=== PATIENT | female | born 1945 | race Caucasian/White ===

== ENCOUNTER 2016-12-05 18:12 | Emergency (ER) | payer OTHER ==
[2016-12-05] MEDS ORDERED: PHENERGAN WITH CODEINE LIQUID PO ONE (18:52)
--- NOTE | 2016-12-05 18:54 | PROVIDER DOCUMENTATION ---
HPI-Respiratory General - General Chief Complaint: Cold Symptoms Stated Complaint: SINUS INFECTION Time Seen by Provider: 12/05/16 18:41 Source: patient Allergies/Adverse Reactions: Patient Allergies Allergy/AdvReac Type Severity Reaction Status Date / Time acetaminophen [From [place]] Allergy Unknown Verified 12/05/16 18:35 hydrocodone bitartrate * Allergy Unknown Verified 12/05/16 18:35 [From [place]] Penicillins Allergy SWELLING Verified 12/05/16 18:35 Sulfa (Sulfonamide Allergy Unknown Verified 12/05/16 18:35 Antibiotics) Home Medications: Home Medication List Medication Instructions Recorded Confirmed Last Taken Type Albuterol Sulfate [Proair Hfa] 8.5 gm IH Q4-6H PRN PRN 10/20/15 12/05/16 History Amlodipine Besylate/Benazepril 1 each PO QHS 10/20/15 12/05/16 12/05/16 History [Amlodipine-Benazepril 5-10 mg] Azelastine 0.05% Oph Solution 1 drop .SEE ORDER DAILY 10/20/15 12/05/16 History [Optivar 0.05% Oph Solution] Budesonide/Formoterol Fumarate 2 puff IH BID PRN PRN 10/20/15 12/05/16 12/05/16 History [Symbicort 160-4.5 Mcg Inhaler] Docusate Sodium [Stool Softener] 100 mg PO DAILY 10/20/15 12/05/16 12/05/16 History Hydrochlorothiazide 12.5 mg PO DIRECTED 10/20/15 12/05/16 12/05/16 History Ibandronate [Boniva] 150 mg PO Q30D 10/20/15 12/05/16 12/05/16 History Levocetirizine Dihydrochloride 5 mg PO DAILY 10/20/15 12/05/16 12/05/16 History Potassium Chloride [Klor-Con M20] 20 meq PO DIRECTED 10/20/15 12/05/16 History Simvastatin 20 mg PO QHS 10/20/15 12/05/16 12/05/16 History Fluocinonide 15 gm TP DIRECTED 10/25/15 12/05/16 12/05/16 History Fluticasone 50 Mcg Nasal [place] 1 spray PAUL BID 10/25/15 12/05/16 12/05/16 History [Flonase] Propylene Glycol/Peg Oph Soln 1 drop PRN PRN 10/25/15 12/05/16 12/05/16 History [Systane Eye Drops] Apixaban [Eliquis] 5 mg PO BID 12/05/16 12/05/16 12/05/16 History Codeine/Promethazine [Phenergan 10 ml PO TID PRN PRN #120 ml 12/05/16 Unknown Rx with Codeine] Ipratropium 0.06% Nasal [place] 2 spray PAUL TID PRN #1 bottle 12/05/16 Unknown Rx [Atrovent 0.06% Nasal [place]] Metoprolol [Lopressor] 50 mg PO HS 12/05/16 12/05/16 12/05/16 History - History of Present Illness-Resp Nature of Presenting Problem: pt has been sick for a day with clear sinus drainage slight scratchy sore throt , hacky dry cough. mild nausea without vomiting. No fever or diarrhea. No SOB Review of Systems - Adult - REVIEW OF SYSTEMS - ADULT Constitutional: denies: chills, fever Eyes: denies: discharge Ears, Nose, Mouth & Throat: reports: sinus problem, throat pain. denies: ear pain Cardiovascular: denies: chest pain, edema Respiratory: reports: cough. denies: shortness of breath, wheezing Gastrointestinal: reports: nausea. denies: abdominal pain, diarrhea, vomiting Genitourinary: denies: dysuria, frequency Musculoskeletal: denies: muscle aches Integumentary: denies: rash Neurological: denies: headache/migraines Psychiatric: reports: no symptoms reported Endocrine: reports: no symptoms reported Hematologic/Lymphatic: reports: no symptoms reported Allergic/Immunologic: reports: no symptoms reported All Other Systems: Reviewed and Negative Past History - Adult - PAST MEDICAL HISTORY-ADULT Review of Records: reports: Old Records Reviewed, Nursing Assessment Review, Medications Reviewed, Social history reviewed & non-contributory. Major Childhood Illnesses: reports: denies history Cardiovascular: reports: denies history Respiratory: reports: denies history Gastrointestinal: reports: denies history Obstetrical/Gynecological: reports: denies history Genitourinary: reports: denies history Musculoskeletal: reports: denies history Neurological: reports: denies history Endocrine/Immune: reports: denies history Other Conditions: reports: denies history - FAMILY HISTORY Family History: reviewed, not pertinent - SOCIAL HISTORY Smoking: denies Substance Use: none/never Alcohol Use Frequency: never Living Situation: family Physical Exam-General - PHYSICAL EXAM-ADULT Initial Vital Signs Reviewed: Yes - CONSTITUTIONAL General Appearance: appears well, alert, no apparent distress - EYES Eyes: PERRL/EOMI. negative: scleral icterus - HEAD, EARS, NOSE, MOUTH & THROAT HENMT: normocephalic/atraumatic, TMs normal, pharynx normal - NECK Neck: non-tender, full range of motion, supple, normal inspection. negative: lymphadenopathy - RESPIRATORY Respiratory: chest non-tender, lungs clear, normal breath sounds, no pleuratic chest pain, no respiratory distress, no accessory muscle use - CARDIOVASCULAR Cardiovascular: no edema, no murmur, irregularly irregular - GASTROINTESTINAL (ABDOMEN) Abdominal Exam: normal bowel sounds, non tender, soft, no organomegaly, no pulsatile mass - MUSCULOSKELETAL Back Exam: normal inspection, no CVA tenderness, no vertebral tenderness Extremity: non-tender, no pedal edema, no calf tenderness - SKIN Integumentary: normal color, normal turgor, warm/dry - NEUROLOGIC Neurologic: grossly normal, no motor/sensory deficits - PSYCHIATRIC Psych/Mental Status: normal mood/affect, normal thought content, normal thought process, oriented x 3 Progress - PLAN OF CARE/RESULTS Progress/Plan/Lab Results: Orders Category Date Time Status Codeine/Promethazine [Phenergan with Codeine Liquid] Med 12/05/16 18:52 Discontinued 10 ml PO NOW ONE Vital Signs Temp Pulse Resp BP Pulse Ox 12/05/16 19:18 97.4 F L 78 20 132/77 99 12/05/16 18:32 98.4 F 92 H 18 166/92 100 acetaminophen [From [place]] Allergy (Verified 12/05/16 18:35) Unknown hydrocodone bitartrate * [From [place]] Allergy (Verified 12/05/16 18:35) Unknown Penicillins Allergy (Verified 12/05/16 18:35) SWELLING Sulfa (Sulfonamide Antibiotics) Allergy (Verified 12/05/16 18:35) Unknown Albuterol Sulfate [Proair Hfa] 8.5 gm IH Q4-6H PRN PRN 10/20/15 Amlodipine Besylate/Benazepril [Amlodipine-Benazepril 5-10 mg] 1 each PO QHS Azelastine 0.05% Oph Solution [Optivar 0.05% Oph Solution] 1 drop .SEE ORDER DAILY 10/20/15 Budesonide/Formoterol Fumarate [Symbicort 160-4.5 Mcg Inhaler] 2 puff IH BID PRN PRN 10/20/15 Docusate Sodium [Stool Softener] 100 mg PO DAILY 10/20/15 Hydrochlorothiazide 12.5 mg PO DIRECTED 10/20/15 Ibandronate [Boniva] 150 mg PO Q30D 10/20/15 Levocetirizine Dihydrochloride 5 mg PO DAILY 10/20/15 Potassium Chloride [Klor-Con M20] 20 meq PO DIRECTED 10/20/15 Simvastatin 20 mg PO QHS 10/20/15 Fluocinonide 15 gm TP DIRECTED 10/25/15 Fluticasone 50 Mcg Nasal [place] [Flonase] 1 spray PAUL BID 10/25/15 Propylene Glycol/Peg Oph Soln [Systane Eye Drops] 1 drop PRN PRN 10/25/15 Apixaban [Eliquis] 5 mg PO BID 12/05/16 Codeine/Promethazine [Phenergan with Codeine] 10 ml PO TID PRN PRN #120 ml 12/05 Ipratropium 0.06% Nasal [place] [Atrovent 0.06% Nasal [place]] 2 spray PAUL TID PRN # 1 bottle 12/05/16 Metoprolol [Lopressor] 50 mg PO HS 12/05/16 Departure - Departure Time of Disposition Order: 18:52 DIAGNOSIS: Upper respiratory infection Qualifiers: URI type: unspecified viral URI Qualified Code(s): J06.9 - Acute upper respiratory infection, unspecified Disposition: HOME 01 Certified Medical Emergency: Emergent Condition: Good Additional Instructions: ED Follow Up Instructions: You have been treated by a care provider in the Emergency Department. These instructions are being provided to you so you can have an understanding of how to care for yourself upon discharge. Upon discharge from the Emergency Department, you are responsible for making arrangements for follow-up care by a physician of your choice. Take all prescribed medications as directed. Return to the Emergency Department immediately for any new or worsening symptoms. You may call the Physician Referral phone number at [phone] to obtain a list of Physicians who are taking new patients. Prescriptions: Ipratropium 0.06% Nasal [place] [Atrovent 0.06% Nasal [place]] 2 spray PAUL TID PRN # 1 bottle PRN Reason: Congestion Codeine/Promethazine [Phenergan with Codeine] 10 ml PO TID PRN PRN #120 ml PRN Reason: Cough Referrals: Adam Valles MD [Primary Care Provider] - Instructions: Ipratropium aerosol inhaler, Codeine tablets, Upper Respiratory Infection, Adult, [id number]
--- NOTE | 2016-12-05 18:59 | PROVIDER DOCUMENTATION ---
HPI-Respiratory General - General Chief Complaint: Cold Symptoms Stated Complaint: SINUS INFECTION Time Seen by Provider: 12/05/16 18:41 Source: patient Allergies/Adverse Reactions: Patient Allergies Allergy/AdvReac Type Severity Reaction Status Date / Time acetaminophen [From [place]] Allergy Unknown Verified 12/05/16 18:35 hydrocodone bitartrate * Allergy Unknown Verified 12/05/16 18:35 [From [place]] Penicillins Allergy SWELLING Verified 12/05/16 18:35 Sulfa (Sulfonamide Allergy Unknown Verified 12/05/16 18:35 Antibiotics) Home Medications: Home Medication List Medication Instructions Recorded Confirmed Last Taken Type Albuterol Sulfate [Proair Hfa] 8.5 gm IH Q4-6H PRN PRN 10/20/15 12/05/16 History Amlodipine Besylate/Benazepril 1 each PO QHS 10/20/15 12/05/16 12/05/16 History [Amlodipine-Benazepril 5-10 mg] Azelastine 0.05% Oph Solution 1 drop .SEE ORDER DAILY 10/20/15 12/05/16 History [Optivar 0.05% Oph Solution] Budesonide/Formoterol Fumarate 2 puff IH BID PRN PRN 10/20/15 12/05/16 12/05/16 History [Symbicort 160-4.5 Mcg Inhaler] Docusate Sodium [Stool Softener] 100 mg PO DAILY 10/20/15 12/05/16 12/05/16 History Hydrochlorothiazide 12.5 mg PO DIRECTED 10/20/15 12/05/16 12/05/16 History Ibandronate [Boniva] 150 mg PO Q30D 10/20/15 12/05/16 12/05/16 History Levocetirizine Dihydrochloride 5 mg PO DAILY 10/20/15 12/05/16 12/05/16 History Potassium Chloride [Klor-Con M20] 20 meq PO DIRECTED 10/20/15 12/05/16 History Simvastatin 20 mg PO QHS 10/20/15 12/05/16 12/05/16 History Fluocinonide 15 gm TP DIRECTED 10/25/15 12/05/16 12/05/16 History Fluticasone 50 Mcg Nasal [place] 1 spray PUAL BID 10/25/15 12/05/16 12/05/16 History [Flonase] Propylene Glycol/Peg Oph Soln 1 drop PRN PRN 10/25/15 12/05/16 12/05/16 History [Systane Eye Drops] Apixaban [Eliquis] 5 mg PO BID 12/05/16 12/05/16 12/05/16 History Codeine/Promethazine [Phenergan 10 ml PO TID PRN PRN #120 ml 12/05/16 Unknown Rx with Codeine] Ipratropium 0.06% Nasal [place] 2 spray PAUL TID PRN #1 bottle 12/05/16 Unknown Rx [Atrovent 0.06% Nasal [place]] Metoprolol [Lopressor] 50 mg PO HS 12/05/16 12/05/16 12/05/16 History - History of Present Illness-Resp Nature of Presenting Problem: 71 year old F presents to the Ed with a cc of cough, congestion, runny nose, sore throat, and nausea with an onset of 3 days ago. Severity in ED: reports: mild Onset/Duration: reports: 3 days ago Timing: reports: still present Cough Quality/Degree: reports: mild Episode Frequency: no prior episodes Current Respiratory Medication Therapy: Initiated see nurses note Associated Symptoms: reports: cough, nasal congestion, nasal drainage, sore throat, other (nausea) Similar Symptoms Previously?: No Recently seen or treated by another doctor?: No Review of Systems - Adult - REVIEW OF SYSTEMS - ADULT Constitutional: denies: chills, fever Eyes: reports: no symptoms reported Ears, Nose, Mouth & Throat: reports: sinus problem, throat pain. denies: ear pain Cardiovascular: denies: chest pain, palpitations Respiratory: reports: cough. denies: shortness of breath, wheezing Gastrointestinal: reports: nausea. denies: diarrhea, vomiting Genitourinary: reports: no symptoms reported Musculoskeletal: reports: no symptoms reported Integumentary: reports: no symptoms reported Neurological: reports: no symptoms reported Psychiatric: reports: no symptoms reported Endocrine: reports: no symptoms reported Hematologic/Lymphatic: reports: no symptoms reported Allergic/Immunologic: reports: no symptoms reported All Other Systems: Reviewed and Negative Past History - Adult - PAST MEDICAL HISTORY-ADULT Review of Records: reports: Nursing Assessment Review, Medications Reviewed Major Childhood Illnesses: reports: denies history Cardiovascular: reports: HTN, hyperlipidemia Respiratory: reports: asthma Gastrointestinal: reports: denies history Obstetrical/Gynecological: reports: denies history Genitourinary: reports: denies history Musculoskeletal: reports: denies history Neurological: reports: denies history Endocrine/Immune: reports: denies history Other Conditions: reports: denies history - PRIOR SURGERIES/PROCEDURES Surgical/Procedure History: reports: joint replacement, other (cataract removal) - IMMUNIZATION STATUS Childhood Immunizations: See Nurse Assessment Flu Vaccine: See Nurse Assessment - FAMILY HISTORY Family History: reviewed, not pertinent Physical Exam-General - PHYSICAL EXAM-ADULT Initial Vital Signs Reviewed: Yes - CONSTITUTIONAL General Appearance: appears well, alert, no apparent distress - HEAD, EARS, NOSE, MOUTH & THROAT HENMT: normocephalic/atraumatic, moist mucous membranes, normal ENT inspection - RESPIRATORY Respiratory: chest non-tender, lungs clear, normal breath sounds - CARDIOVASCULAR Cardiovascular: no edema, irregularly irregular - GASTROINTESTINAL (ABDOMEN) Abdominal Exam: non tender, soft - MUSCULOSKELETAL Extremity: normal inspection, no pedal edema - SKIN Integumentary: normal color, normal turgor, warm/dry - PSYCHIATRIC Psych/Mental Status: normal mood/affect, normal thought content, normal thought process, oriented x 3 Departure - Departure Time of Disposition Order: 19:00 DIAGNOSIS: Upper respiratory infection Qualifiers: URI type: unspecified viral URI Qualified Code(s): J06.9 - Acute upper respiratory infection, unspecified Disposition: HOME 01 Certified Medical Emergency: Emergent Condition: Good Additional Instructions: ED Follow Up Instructions: You have been treated by a care provider in the Emergency Department. These instructions are being provided to you so you can have an understanding of how to care for yourself upon discharge. Upon discharge from the Emergency Department, you are responsible for making arrangements for follow-up care by a physician of your choice. Take all prescribed medications as directed. Return to the Emergency Department immediately for any new or worsening symptoms. You may call the Physician Referral phone number at [phone] to obtain a list of Physicians who are taking new patients. Prescriptions: Ipratropium 0.06% Nasal [place] [Atrovent 0.06% Nasal [place]] 2 spray PAUL TID PRN # 1 bottle PRN Reason: Congestion Codeine/Promethazine [Phenergan with Codeine] 10 ml PO TID PRN PRN #120 ml PRN Reason: Cough Referrals: Adam Valles MD [Primary Care Provider] - Instructions: Ipratropium aerosol inhaler, Codeine tablets, Upper Respiratory Infection, Adult, [id number] Attestation - Scribe Verification/Attestation Scribe:: Leah Prather Acting as Scribe for:: Dimitrios Mclaughlin Scribe documention review:: This chart was documented by a scribe and accurately reflects the service the provider performed and the decisions made by the provider. Physician Attestation - Physician Attestation I, the provider, attest to the following statement:: Dimitrios Mclaughlin Physician documentation Attestation:: This documentation recorded by the scribe accurately reflects the service I personally performed and the decisions made by me.
[2016-12-05 19:19] VITALS: BP 132/77
== END 2016-12-05 19:18 | disposition home or self-care (01) ==
LOC: P.ED 18:12
DX: J06.9 Acute upper respiratory infection, unspecified (principal); R05 Cough; R09.81 Nasal congestion; R09.89 Other specified symptoms and signs involving the circulatory and respiratory systems; J02.9 Acute pharyngitis, unspecified; R11.0 Nausea; I10 Essential (primary) hypertension; Z79.899 Other long term (current) drug therapy; E78.5 Hyperlipidemia, unspecified; J45.909 Unspecified asthma, uncomplicated; Z79.01 Long term (current) use of anticoagulants; Z96.60 Presence of unspecified orthopedic joint implant
CPT/HCPCS: 99282